=== PATIENT | female | born 2000 | race Caucasian/White ===

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

== ENCOUNTER 2021-01-05 01:27 | Outpatient (CLI) | payer OTHER ==
[~2021-01-05 01:27] MED LIST: IBUPROFEN600 MG PO; NORCO 5-325 TA1 EACH PO; PRENATAL VITAM1 EAC8 PO; VENTOLIN HFA 66.7 GM INH
== END 2021-01-05 02:58 | disposition home or self-care (01) ==
LOC: GENOP 01:27
DX: O47.03 False labor before 37 completed weeks of gestation, third trimester (principal); O10.913 Unspecified pre-existing hypertension complicating pregnancy, third trimester; O99.333 Smoking (tobacco) complicating pregnancy, third trimester; F17.210 Nicotine dependence, cigarettes, uncomplicated; O99.343 Other mental disorders complicating pregnancy, third trimester; F41.9 Anxiety disorder, unspecified; F32.9 Major depressive disorder, single episode, unspecified; O99.353 Diseases of the nervous system complicating pregnancy, third trimester; G43.909 Migraine, unspecified, not intractable, without status migrainosus; O99.513 Diseases of the respiratory system complicating pregnancy, third trimester; J45.909 Unspecified asthma, uncomplicated; Z3A.34 34 weeks gestation of pregnancy
CPT/HCPCS: 81001; G0463

== ENCOUNTER 2021-01-19 17:15 | Inpatient (IN) | payer OTHER ==
[~2021-01-19] VITALS: Ht 165.1 cm; Wt 98.4 kg
[2021-01-19 18:42] LABS: HEMOGLOBIN 12.8 gm/dl (12.3-15.3); RED BLOOD COUNT 3.95 M/UL (4.00-5.10); WHITE BLOOD COUNT 12.4 K/UL (4.5-11.0)
[2021-01-19 18:53] LABS: BUN/CREATININE RATIO 18 (0-10)
[2021-01-19] MEDS ORDERED: TRANDATE 200 M200 MG GT (18:53)
[2021-01-19] MEDS ORDERED: PEPCID20 MG PO (18:53)
[2021-01-19] MEDS ORDERED: UNISOM25 MG PO (18:54)
[2021-01-20] MEDS ORDERED: IBUPROFEN600 MG PO (00:41)
[2021-01-20] MEDS ORDERED: HYDROCODON-ACE1 EAC4 PO (00:41)
[2021-01-20] MEDS ORDERED: DOCUSATE SODIU100 MG PO (00:41)
[2021-01-21 07:00] LABS: HEMOGLOBIN 11.7 gm/dl (12.3-15.3)
[2021-01-22] MEDS ORDERED: NIFEDIPINE ER30 M1 PO (11:40)
[2021-01-22] MEDS ORDERED: LABETALOL HCL200 MG PO (11:40)
== END 2021-01-22 14:05 | disposition home or self-care (01) | DRG 787 ==
LOC: GENOP 17:15 → OB 17:42
PROVIDERS: ADMIT Obstetrics & Gynecology
PROC: 4A1HXCZ Monitoring of Products of Conception, Cardiac Rate, External Approach (ICD-10-PCS; 2021-01-19)
PROC: 10D00Z1 Extraction of Products of Conception, Low, Open Approach (ICD-10-PCS; principal; 2021-01-19 23:00)
DX: O11.4 Pre-existing hypertension with pre-eclampsia, complicating childbirth (principal); O41.03X0 Oligohydramnios, third trimester, not applicable or unspecified; O10.92 Unspecified pre-existing hypertension complicating childbirth; Z3A.36 36 weeks gestation of pregnancy; Z37.0 Single live birth; O36.5930 Maternal care for other known or suspected poor fetal growth, third trimester, not applicable or unspecified; F17.210 Nicotine dependence, cigarettes, uncomplicated; O99.214 Obesity complicating childbirth; E66.9 Obesity, unspecified; O34.211 Maternal care for low transverse scar from previous cesarean delivery; Z20.822 Contact with and (suspected) exposure to COVID-19; Z98.890 Other specified postprocedural states
CPT/HCPCS: 36415; 80053; 81001; 82570; 82800; 83615; 83735; 84156; 84550; 85014; 85018; 85025; 90707; C9113; J0690; J1170; J2274; J2370; J2405; J2590; J3475; J7120; U0002